=== PATIENT | female | born 1945 | race Caucasian/White ===

== ENCOUNTER 2023-06-16 14:55 | Inpatient (IN) | payer MEDICARE, OTHER ==
[2023-06-16] MEDS ORDERED: Ondansetron 4 MG/2 ML SDV IVPUSH ONE (15:47)
[2023-06-16] MEDS ORDERED: HYDROmorphone 0.5 MG/0.5 ML Syringe IVPUSH ONE (15:47)
[2023-06-16] MEDS ORDERED: Metoclopramide 10 MG/2 ML SDV IVPUSH ONE (16:02)
[2023-06-16] MEDS ORDERED: Propofol 200 MG/20 ML SDV IVPUSH ONE ×2 (16:21→18:16)
[2023-06-16] MEDS: Sodium Chloride 0.9% 1,000 ML IV STA ×2 (16:38→23:07)
[2023-06-16 18:42] LABS: BASOPHILS ABSOLUTE AUTO 0.1 K/mm3 (0.0-0.2); BASOPHILS PERCENT AUTO 0.4 % (0.0-1.0); HEMATOCRIT 24.7 % (37.0-47.0); HEMOGLOBIN 8.2 gm/dl (12.0-16.0); IMMATURE GRAN ABSOLUTE AUTO 0.14 K/mm3 (0.00-0.05); IMMATURE GRAN PERCENT AUTO 1.2 % (0.0-0.4); LYMPHOCYTES ABSOLUTE AUTO 0.7 K/mm3 (1.0-4.8); LYMPHOCYTES PERCENT AUTO 5.7 % (24.0-44.0); MEAN CORPUSCULAR HEMOGLOBIN 29.6 pg (28.0-32.0); MEAN CORPUSCULAR HGB CONC 33.2 g/dl (32.0-36.0); MEAN CORPUSCULAR VOLUME 89.2 fl (83.0-99.0); MEAN PLATELET VOLUME 8.3 fl (9.4-12.3); MONOCYTES ABSOLUTE AUTO 0.5 K/mm3 (0.0-0.8); MONOCYTES PERCENT AUTO 4.4 % (0.0-8.0); NEUTROPHILS ABSOLUTE AUTO 10.1 K/mm3 (1.8-7.7); NEUTROPHILS PERCENT AUTO 88.3 % (41.0-71.0); PLATELET COUNT,PLT 640 K/mm3 (150-400); RED BLOOD CELL COUNT 2.77 M/mm3 (4.10-5.30); WHITE BLOOD CELL COUNT,WBC 11.48 K/mm3 (3.9-11.3)
[2023-06-16] MEDS ORDERED: Docusate Sodium 100 MG Cap PO PRN (18:52)
[2023-06-16 19:10] LABS: A/G RATIO 0.5 (1-2); ANION GAP 12.2 (5-15); BILIRUBIN TOTAL 0.4 mg/dL (0.2-1.0); EST CRCL DRUG DOSING (CG) 32.23 mL/min; POTASSIUM,K 4.2 mEq/L (3.5-5.1); PROTEIN TOTAL,TP 6.4 g/dl (6.4-8.2)
[2023-06-16] MEDS: HYDROmorphone 0.5 MG/0.5 ML Syringe IVPUSH PRN ×2 (20:47→23:06)
[2023-06-16] MEDS ORDERED: Sodium Chloride 0.9% 1,000 ML ONE (23:03)
[2023-06-17] MEDS: Heparin Sodium 5,000 Units/ML Vial SUBCUT SCH ×3 (00:15→19:09)
[2023-06-17] MEDS: Ketorolac 30 MG/ML SDV IVPUSH PRN ×2 (00:59→08:30)
[2023-06-17] MEDS: HYDROmorphone 0.5 MG/0.5 ML Syringe IVPUSH PRN ×8 (00:59→21:23)
[2023-06-17] MEDS: traMADol 50 MG Tab PO PRN ×3 (04:43→17:10)
[2023-06-17 06:20] LABS: HEMATOCRIT 25.1 % (37.0-47.0); HEMOGLOBIN 8.4 gm/dl (12.0-16.0); MEAN CORPUSCULAR HEMOGLOBIN 30.8 pg (28.0-32.0); MEAN CORPUSCULAR HGB CONC 33.5 g/dl (32.0-36.0); MEAN CORPUSCULAR VOLUME 91.9 fl (83.0-99.0); MEAN PLATELET VOLUME 8.2 fl (9.4-12.3); PLATELET COUNT,PLT 657 K/mm3 (150-400); RED BLOOD CELL COUNT 2.73 M/mm3 (4.10-5.30); WHITE BLOOD CELL COUNT,WBC 11.51 K/mm3 (3.9-11.3)
[2023-06-17 06:42] LABS: ANION GAP 10.8 (5-15); BUN/CREATININE RATIO 26.7 (14-18); CREATININE 0.6 mg/dL (0.55-1.02); EST CRCL DRUG DOSING (CG) 53.71 mL/min; MAGNESIUM 1.6 mg/dL (1.8-2.4); PHOSPHORUS 2.8 mg/dL (2.6-4.7); POTASSIUM,K 3.8 mEq/L (3.5-5.1)
[2023-06-17] MEDS: Hydroxychloroquine 200 MG Tab PO SCH (08:34)
[2023-06-17] MEDS: DULoxetine 30 MG Cap PO SCH (08:34)
[2023-06-17] MEDS: Hydrochlorothiazide 25 MG Tab PO SCH (08:35)
[2023-06-17] MEDS: Losartan 100 MG Tab PO SCH (08:35)
[2023-06-17] MEDS: Folic Acid 1 MG Tab PO SCH (08:35)
[2023-06-17] MEDS: Metoprolol Succinate 25 MG Tab.ER PO SCH (08:35)
[2023-06-17] MEDS ORDERED: Non-Formulary Medication 1 Each (Prednisone [Prednisone] 2.5 MG Tablet) PO SCH (09:00)
[2023-06-17] MEDS ORDERED: Non-Formulary Medication 1 Each (Valsartan/Hydrochlorothiazide [Diovan Hct 160-25 Mg Table PO SCH (09:00)
[2023-06-17] MEDS: predniSONE 5 MG Tab PO SCH (09:07)
[2023-06-17] MEDS ORDERED: Memantine 10 MG Tab PO SCH (09:30)
[2023-06-17] MEDS ORDERED: Citalopram 20 MG Tab PO SCH (09:45)
[2023-06-17] MEDS: Multivitamins with Minerals/Folic Acid/Lutein/Zeaxanth Tab PO SCH (12:52)
[2023-06-17] MEDS: Calcium Carbonate/Vitamin D3 600 MG-200 Units Tab PO SCH (12:52)
[2023-06-17] MEDS: Ondansetron 4 MG Tab.DIS PO PRN (14:43)
[2023-06-17] MEDS: Ketorolac 15 MG/ML SDV IVPUSH PRN (17:57)
[2023-06-17] MEDS ORDERED: Melatonin 3 MG Tab PO SCH (21:00)
[2023-06-17] MEDS: Acetaminophen 325 MG Tab PO PRN (21:23)
[2023-06-18] MEDS: Ketorolac 15 MG/ML SDV IVPUSH PRN ×2 (00:32→08:38)
[2023-06-18 02:09] LABS: APPEARANCE,URINE CLEAR (Clear); BILIRUBIN,URINE NEGATIVE (Negative); COLOR,URINE YELLOW (Yellow); GLUCOSE,URINE NEGATIVE (Negative); KETONES,URINE TRACE (Negative); LEUKOCYTE ESTERASE,URINE NEGATIVE (Negative); NITRITE,URINE NEGATIVE (Negative); OCCULT BLOOD,URINE 2+ (Negative); PROTEIN,URINE TRACE (Negative); UROBILINOGEN,URINE 0.2 (0.2-1.0)
[2023-06-18 02:20] LABS: BACTERIA,URINE MODERATE /hpf (FEW); RBC,URINE 20-30 /hpf (0-5)
[2023-06-18 02:21] LABS: MUCUS,URINE NOT SEEN /hpf (FEW)
[2023-06-18 05:01] LABS: HEMATOCRIT 22.1 % (37.0-47.0); MEAN CORPUSCULAR HEMOGLOBIN 30.7 pg (28.0-32.0); MEAN CORPUSCULAR HGB CONC 33.5 g/dl (32.0-36.0); MEAN CORPUSCULAR VOLUME 91.7 fl (83.0-99.0); MEAN PLATELET VOLUME 8.4 fl (9.4-12.3); PLATELET COUNT,PLT 587 K/mm3 (150-400); RED BLOOD CELL COUNT 2.41 M/mm3 (4.10-5.30); WHITE BLOOD CELL COUNT,WBC 17.49 K/mm3 (3.9-11.3)
[2023-06-18 05:34] LABS: ANION GAP 8.7 (5-15); CALCIUM 8.5 mg/dL (8.5-10.1); CREATININE 0.7 mg/dL (0.55-1.02); EST CRCL DRUG DOSING (CG) 46.04 mL/min; HEMOGLOBIN 7.4 gm/dl (12.0-16.0); POTASSIUM,K 3.7 mEq/L (3.5-5.1)
[2023-06-18] MEDS: traMADol 50 MG Tab PO PRN ×3 (06:03→18:33)
[2023-06-18] MEDS: Heparin Sodium 5,000 Units/ML Vial SUBCUT SCH ×2 (06:04→18:34)
[2023-06-18] MEDS: Hydroxychloroquine 200 MG Tab PO SCH (08:40)
[2023-06-18] MEDS: DULoxetine 30 MG Cap PO SCH (08:42)
[2023-06-18] MEDS: predniSONE 5 MG Tab PO SCH (08:42)
[2023-06-18] MEDS: Multivitamins with Minerals/Folic Acid/Lutein/Zeaxanth Tab PO SCH (08:43)
[2023-06-18] MEDS: Calcium Carbonate/Vitamin D3 600 MG-200 Units Tab PO SCH (08:43)
[2023-06-18] MEDS: Folic Acid 1 MG Tab PO SCH (08:43)
[2023-06-18] MEDS: Losartan 100 MG Tab PO SCH (09:36)
[2023-06-18] MEDS: Metoprolol Succinate 25 MG Tab.ER PO SCH (09:36)
[2023-06-18] MEDS: Hydrochlorothiazide 25 MG Tab PO SCH (09:36)
[2023-06-18] MEDS: HYDROmorphone 0.5 MG/0.5 ML Syringe IVPUSH PRN ×4 (10:23→22:44)
[2023-06-18] MEDS: Famotidine 20 MG Tab PO SCH (20:10)
[2023-06-18] MEDS: Acetaminophen 325 MG Tab PO PRN (20:10)
[2023-06-19] MEDS: Heparin Sodium 5,000 Units/ML Vial SUBCUT SCH ×2 (06:20→18:46)
[2023-06-19] MEDS: HYDROmorphone 0.5 MG/0.5 ML Syringe IVPUSH PRN ×4 (06:22→22:14)
[2023-06-19] MEDS: Acetaminophen 325 MG Tab PO PRN ×3 (08:00→19:58)
[2023-06-19] MEDS: Leflunomide 20 MG Tablet **PTOM PO SCH (08:02)
[2023-06-19] MEDS: Hydroxychloroquine 200 MG Tab PO SCH (08:11)
[2023-06-19] MEDS: Metoprolol Succinate 25 MG Tab.ER PO SCH (08:12)
[2023-06-19] MEDS: DULoxetine 30 MG Cap PO SCH (08:12)
[2023-06-19] MEDS: Multivitamins with Minerals/Folic Acid/Lutein/Zeaxanth Tab PO SCH (08:12)
[2023-06-19] MEDS: predniSONE 5 MG Tab PO SCH (08:12)
[2023-06-19] MEDS: Calcium Carbonate/Vitamin D3 600 MG-200 Units Tab PO SCH (08:12)
[2023-06-19] MEDS: Folic Acid 1 MG Tab PO SCH (08:12)
[2023-06-19] MEDS ORDERED: Non-Formulary Medication 1 Each (Vit A/Vit C/Vit E/Zinc/Copper [Preservision] 1 EACH Table PO SCH (09:00)
[2023-06-19 09:37] LABS: HEMATOCRIT 21.8 % (37.0-47.0); MEAN CORPUSCULAR HEMOGLOBIN 29.5 pg (28.0-32.0); MEAN CORPUSCULAR HGB CONC 32.1 g/dl (32.0-36.0); MEAN PLATELET VOLUME 8.4 fl (9.4-12.3); PLATELET COUNT,PLT 646 K/mm3 (150-400); RED BLOOD CELL COUNT 2.37 M/mm3 (4.10-5.30); WHITE BLOOD CELL COUNT,WBC 14.57 K/mm3 (3.9-11.3)
[2023-06-19 09:59] LABS: ANION GAP 9.1 (5-15); BUN/CREATININE RATIO 21.7 (14-18); CALCIUM 8.9 mg/dL (8.5-10.1); CREATININE 0.6 mg/dL (0.55-1.02); EST CRCL DRUG DOSING (CG) 53.71 mL/min; POTASSIUM,K 4.1 mEq/L (3.5-5.1)
[2023-06-19] MEDS: traMADol 50 MG Tab PO PRN ×2 (11:09→18:46)
[2023-06-19] MEDS: Losartan 100 MG Tab PO SCH (11:21)
[2023-06-19] MEDS: Hydrochlorothiazide 25 MG Tab PO SCH (11:21)
[2023-06-19] MEDS: Docusate Sodium 100 MG Cap PO SCH (11:21)
[2023-06-19] MEDS ORDERED: Sodium Chloride 0.9% 250 ML IV SCH (16:30)
[2023-06-19] MEDS: Famotidine 20 MG Tab PO SCH (22:14)
[2023-06-20] MEDS: Acetaminophen 325 MG Tab PO PRN ×5 (03:40→23:13)
[2023-06-20] MEDS: Heparin Sodium 5,000 Units/ML Vial SUBCUT SCH ×2 (06:51→18:13)
[2023-06-20] MEDS: Ferrous Sulfate 324 MG Tab.EC PO SCH (06:51)
[2023-06-20] MEDS: Hydroxychloroquine 200 MG Tab PO SCH (08:20)
[2023-06-20] MEDS: Calcium Carbonate/Vitamin D3 600 MG-200 Units Tab PO SCH (08:20)
[2023-06-20] MEDS: DULoxetine 30 MG Cap PO SCH (08:20)
[2023-06-20] MEDS: Multivitamins with Minerals/Folic Acid/Lutein/Zeaxanth Tab PO SCH (08:20)
[2023-06-20] MEDS: Docusate Sodium 100 MG Cap PO SCH (08:20)
[2023-06-20] MEDS: Folic Acid 1 MG Tab PO SCH ×2 (08:20→08:24)
[2023-06-20] MEDS: Leflunomide 20 MG Tablet **PTOM PO SCH (08:21)
[2023-06-20] MEDS: predniSONE 5 MG Tab PO SCH (08:21)
[2023-06-20] MEDS: Hydrochlorothiazide 25 MG Tab PO SCH (12:37)
[2023-06-20] MEDS: Metoprolol Succinate 25 MG Tab.ER PO SCH (12:37)
[2023-06-20] MEDS: Losartan 100 MG Tab PO SCH (12:37)
[2023-06-20] MEDS: Famotidine 20 MG Tab PO SCH (20:20)
[2023-06-21] MEDS: traMADol 50 MG Tab PO PRN ×2 (01:41→20:54)
[2023-06-21] MEDS: Acetaminophen 325 MG Tab PO PRN ×5 (04:32→22:57)
[2023-06-21 05:47] LABS: HEMATOCRIT 24.5 % (37.0-47.0); HEMOGLOBIN 8.2 gm/dl (12.0-16.0); MEAN CORPUSCULAR HEMOGLOBIN 30.1 pg (28.0-32.0); MEAN CORPUSCULAR HGB CONC 33.5 g/dl (32.0-36.0); MEAN CORPUSCULAR VOLUME 90.1 fl (83.0-99.0); MEAN PLATELET VOLUME 8.2 fl (9.4-12.3); PLATELET COUNT,PLT 640 K/mm3 (150-400); RED BLOOD CELL COUNT 2.72 M/mm3 (4.10-5.30); WHITE BLOOD CELL COUNT,WBC 10.97 K/mm3 (3.9-11.3)
[2023-06-21 06:01] LABS: ANION GAP 10.5 (5-15); CALCIUM 8.8 mg/dL (8.5-10.1); CREATININE 0.6 mg/dL (0.55-1.02); EST CRCL DRUG DOSING (CG) 53.71 mL/min; POTASSIUM,K 4.5 mEq/L (3.5-5.1)
[2023-06-21] MEDS: Heparin Sodium 5,000 Units/ML Vial SUBCUT SCH ×2 (06:49→18:36)
[2023-06-21] MEDS: Ferrous Sulfate 324 MG Tab.EC PO SCH (06:49)
[2023-06-21] MEDS: predniSONE 5 MG Tab PO SCH (09:11)
[2023-06-21] MEDS: Multivitamins with Minerals/Folic Acid/Lutein/Zeaxanth Tab PO SCH (09:11)
[2023-06-21] MEDS: DULoxetine 30 MG Cap PO SCH (09:11)
[2023-06-21] MEDS: Calcium Carbonate/Vitamin D3 600 MG-200 Units Tab PO SCH (09:12)
[2023-06-21] MEDS: Folic Acid 1 MG Tab PO SCH ×2 (09:12→09:20)
[2023-06-21] MEDS: Docusate Sodium 100 MG Cap PO SCH (09:12)
[2023-06-21] MEDS: Leflunomide 20 MG Tablet **PTOM PO SCH (09:12)
[2023-06-21] MEDS: Losartan 100 MG Tab PO SCH (09:15)
[2023-06-21] MEDS: Metoprolol Succinate 25 MG Tab.ER PO SCH (09:15)
[2023-06-21] MEDS: Hydrochlorothiazide 25 MG Tab PO SCH (09:15)
[2023-06-21] MEDS: Hydroxychloroquine 200 MG Tab PO SCH (09:17)
[2023-06-21] MEDS: Famotidine 20 MG Tab PO SCH (20:55)
[2023-06-22] MEDS: Acetaminophen 325 MG Tab PO PRN ×3 (07:22→19:43)
[2023-06-22] MEDS: Heparin Sodium 5,000 Units/ML Vial SUBCUT SCH ×2 (07:23→19:25)
[2023-06-22] MEDS: Ferrous Sulfate 324 MG Tab.EC PO SCH (07:23)
[2023-06-22] MEDS: Losartan 100 MG Tab PO SCH (08:22)
[2023-06-22] MEDS: Hydroxychloroquine 200 MG Tab PO SCH (08:22)
[2023-06-22] MEDS: Multivitamins with Minerals/Folic Acid/Lutein/Zeaxanth Tab PO SCH (08:23)
[2023-06-22] MEDS: Metoprolol Succinate 25 MG Tab.ER PO SCH (08:23)
[2023-06-22] MEDS: Hydrochlorothiazide 25 MG Tab PO SCH (08:23)
[2023-06-22] MEDS: predniSONE 5 MG Tab PO SCH (08:23)
[2023-06-22] MEDS: Folic Acid 1 MG Tab PO SCH (08:23)
[2023-06-22] MEDS: Docusate Sodium 100 MG Cap PO SCH (08:23)
[2023-06-22] MEDS: Leflunomide 20 MG Tablet **PTOM PO SCH (08:24)
[2023-06-22] MEDS: Calcium Carbonate/Vitamin D3 600 MG-200 Units Tab PO SCH (08:24)
[2023-06-22] MEDS: DULoxetine 30 MG Cap PO SCH (08:24)
[2023-06-22 08:38] LABS: BASOPHILS ABSOLUTE AUTO 0.1 K/mm3 (0.0-0.2); EOSINOPHILS ABSOLUTE AUTO 0.3 K/mm3 (0.0-0.4); EOSINOPHILS PERCENT AUTO 3.1 % (0.0-6.0); HEMOGLOBIN 9.6 gm/dl (12.0-16.0); IMMATURE GRAN ABSOLUTE AUTO 0.22 K/mm3 (0.00-0.05); IMMATURE GRAN PERCENT AUTO 2.1 % (0.0-0.4); LYMPHOCYTES ABSOLUTE AUTO 1.6 K/mm3 (1.0-4.8); MEAN CORPUSCULAR HEMOGLOBIN 30.4 pg (28.0-32.0); MEAN CORPUSCULAR HGB CONC 33.1 g/dl (32.0-36.0); MEAN CORPUSCULAR VOLUME 91.8 fl (83.0-99.0); MONOCYTES ABSOLUTE AUTO 1.2 K/mm3 (0.0-0.8); MONOCYTES PERCENT AUTO 11.6 % (0.0-8.0); NEUTROPHILS ABSOLUTE AUTO 6.9 K/mm3 (1.8-7.7); NEUTROPHILS PERCENT AUTO 67.2 % (41.0-71.0); RED BLOOD CELL COUNT 3.16 M/mm3 (4.10-5.30); WHITE BLOOD CELL COUNT,WBC 10.32 K/mm3 (3.9-11.3)
[2023-06-22 08:39] LABS: PLATELET COUNT,PLT 754 K/mm3 (150-400)
[2023-06-22 08:52] LABS: ANION GAP 15.5 (5-15); CREATININE 0.7 mg/dL (0.55-1.02); EST CRCL DRUG DOSING (CG) 46.04 mL/min; POTASSIUM,K 4.5 mEq/L (3.5-5.1)
[2023-06-22] MEDS: traMADol 50 MG Tab PO PRN (10:54)
[2023-06-22] MEDS ORDERED: HYDROmorphone 2 MG Tab PO PRN (11:42)
[2023-06-22] MEDS ORDERED: Naloxone 0.4 MG/ML SDV IVPUSH PRN (14:21)
[2023-06-22 15:14] LABS: BASOPHILS ABSOLUTE AUTO 0.1 K/mm3 (0.0-0.2); BASOPHILS PERCENT AUTO 0.8 % (0.0-1.0); EOSINOPHILS PERCENT AUTO 0.4 % (0.0-6.0); HEMATOCRIT 28.6 % (37.0-47.0); HEMOGLOBIN 9.4 gm/dl (12.0-16.0); IMMATURE GRAN ABSOLUTE AUTO 0.19 K/mm3 (0.00-0.05); IMMATURE GRAN PERCENT AUTO 1.8 % (0.0-0.4); LYMPHOCYTES ABSOLUTE AUTO 0.9 K/mm3 (1.0-4.8); LYMPHOCYTES PERCENT AUTO 8.5 % (24.0-44.0); MEAN CORPUSCULAR HEMOGLOBIN 30.4 pg (28.0-32.0); MEAN CORPUSCULAR HGB CONC 32.9 g/dl (32.0-36.0); MEAN CORPUSCULAR VOLUME 92.6 fl (83.0-99.0); MEAN PLATELET VOLUME 8.1 fl (9.4-12.3); MONOCYTES PERCENT AUTO 9.7 % (0.0-8.0); NEUTROPHILS ABSOLUTE AUTO 8.5 K/mm3 (1.8-7.7); NEUTROPHILS PERCENT AUTO 78.8 % (41.0-71.0); PLATELET COUNT,PLT 721 K/mm3 (150-400); RED BLOOD CELL COUNT 3.09 M/mm3 (4.10-5.30); WHITE BLOOD CELL COUNT,WBC 10.73 K/mm3 (3.9-11.3)
[2023-06-22 15:33] LABS: A/G RATIO 0.4 (1-2); ALBUMIN 1.9 g/dl (3.4-5.0); ANION GAP 13.2 (5-15); BILIRUBIN TOTAL 0.4 mg/dL (0.2-1.0); BUN/CREATININE RATIO 22.5 (14-18); CREATININE 0.8 mg/dL (0.55-1.02); EST CRCL DRUG DOSING (CG) 40.29 mL/min; POTASSIUM,K 5.2 mEq/L (3.5-5.1); PROTEIN TOTAL,TP 6.9 g/dl (6.4-8.2)
[2023-06-22] MEDS: HYDROmorphone 0.5 MG/0.5 ML Syringe IVPUSH PRN ×2 (16:58→21:41)
[2023-06-22] MEDS: Famotidine 20 MG Tab PO SCH ×2 (19:44→21:46)
[2023-06-23] MEDS: HYDROmorphone 0.5 MG/0.5 ML Syringe IVPUSH PRN ×4 (02:22→14:57)
[2023-06-23] MEDS: Ferrous Sulfate 324 MG Tab.EC PO SCH (07:20)
[2023-06-23 08:09] LABS: BASOPHILS ABSOLUTE AUTO 0.1 K/mm3 (0.0-0.2); EOSINOPHILS ABSOLUTE AUTO 0.2 K/mm3 (0.0-0.4); EOSINOPHILS PERCENT AUTO 2.2 % (0.0-6.0); HEMATOCRIT 31.8 % (37.0-47.0); HEMOGLOBIN 10.3 gm/dl (12.0-16.0); IMMATURE GRAN ABSOLUTE AUTO 0.23 K/mm3 (0.00-0.05); IMMATURE GRAN PERCENT AUTO 2.2 % (0.0-0.4); LYMPHOCYTES ABSOLUTE AUTO 1.4 K/mm3 (1.0-4.8); LYMPHOCYTES PERCENT AUTO 13.9 % (24.0-44.0); MEAN CORPUSCULAR HEMOGLOBIN 30.3 pg (28.0-32.0); MEAN CORPUSCULAR HGB CONC 32.4 g/dl (32.0-36.0); MEAN CORPUSCULAR VOLUME 93.5 fl (83.0-99.0); MONOCYTES ABSOLUTE AUTO 1.2 K/mm3 (0.0-0.8); MONOCYTES PERCENT AUTO 11.9 % (0.0-8.0); NEUTROPHILS ABSOLUTE AUTO 7.1 K/mm3 (1.8-7.7); NEUTROPHILS PERCENT AUTO 68.8 % (41.0-71.0); PLATELET COUNT,PLT 766 K/mm3 (150-400); WHITE BLOOD CELL COUNT,WBC 10.34 K/mm3 (3.9-11.3)
[2023-06-23] MEDS: Hydroxychloroquine 200 MG Tab PO SCH (08:13)
[2023-06-23] MEDS: DULoxetine 30 MG Cap PO SCH (08:13)
[2023-06-23] MEDS: Calcium Carbonate/Vitamin D3 600 MG-200 Units Tab PO SCH (08:13)
[2023-06-23] MEDS: predniSONE 5 MG Tab PO SCH (08:13)
[2023-06-23] MEDS: Hydrochlorothiazide 25 MG Tab PO SCH (08:14)
[2023-06-23] MEDS: Docusate Sodium 100 MG Cap PO SCH (08:15)
[2023-06-23] MEDS: Acetaminophen 325 MG Tab PO PRN ×2 (08:15→14:31)
[2023-06-23] MEDS: Folic Acid 1 MG Tab PO SCH (08:15)
[2023-06-23] MEDS: Multivitamins with Minerals/Folic Acid/Lutein/Zeaxanth Tab PO SCH (08:15)
[2023-06-23] MEDS: Losartan 100 MG Tab PO SCH (08:15)
[2023-06-23] MEDS: Metoprolol Succinate 25 MG Tab.ER PO SCH (08:16)
[2023-06-23 08:58] LABS: A/G RATIO 0.4 (1-2); ALBUMIN 2.1 g/dl (3.4-5.0); ANION GAP 11.6 (5-15); BILIRUBIN TOTAL 0.4 mg/dL (0.2-1.0); CALCIUM 9.2 mg/dL (8.5-10.1); CREATININE 0.7 mg/dL (0.55-1.02); EST CRCL DRUG DOSING (CG) 46.04 mL/min; MAGNESIUM 1.9 mg/dL (1.8-2.4); POTASSIUM,K 4.6 mEq/L (3.5-5.1); PROTEIN TOTAL,TP 7.3 g/dl (6.4-8.2)
[2023-06-23] MEDS: Leflunomide 20 MG Tablet **PTOM PO SCH (09:17)
[2023-06-23] MEDS ORDERED: Propofol 200 MG/20 ML SDV ONE (11:26)
[2023-06-23] MEDS ORDERED: Midazolam 1 MG/ML 2 ML SDV ONE (11:26)
[2023-06-23] MEDS ORDERED: fentaNYL 100 MCG/2 ML SDV ONE (11:26)
[2023-06-23] MEDS ORDERED: Ketamine 200 MG/20 ML MDV ONE (11:28)
[2023-06-23] MEDS ORDERED: Lidocaine 1% 4 ML ONE (11:28)
[2023-06-23] MEDS ORDERED: Lactated Ringers 1,000 ML IV ONE (11:30)
[2023-06-23] MEDS ORDERED: Rocuronium 50 MG/5 ML Vial ONE (11:44)
[2023-06-23] MEDS ORDERED: Sodium Chloride 0.9% 1,000 ML IV SCH (11:45)
[2023-06-23] MEDS ORDERED: Phenylephrine 1% 10 MG/ML SDV ONE ×2 (11:50→12:52)
[2023-06-23] MEDS ORDERED: ePHEDrine 50 MG/ML SDV ONE (12:15)
[2023-06-23] MEDS ORDERED: Sugammadex Sodium 200 MG/2 ML VIAL ONE (12:18)
[2023-06-23] MEDS ORDERED: fentaNYL 100 MCG/2 ML SDV IVPUSH PRN (13:00)
[2023-06-23] MEDS ORDERED: Ondansetron 4 MG/2 ML SDV IVPUSH PRN (13:00)
[2023-06-23] MEDS ORDERED: HYDROmorphone 0.5 MG/0.5 ML Syringe IVPUSH PRN (13:00)
[2023-06-23] MEDS: Ondansetron 4 MG Tab.DIS PO PRN (14:56)
== END 2023-06-23 15:21 | DRG 559 ==
LOC: JD.ED 14:55 → JD.OB 18:52 → JD.ICU 06-17 00:21 → JD.MS 06-17 18:42
PROVIDERS: ADMIT Internal Medicine; ATTEND Internal Medicine
PROC: 0QS4XZZ Reposition Right Acetabulum, External Approach (ICD-10-PCS; principal; 2023-06-16)
DX: T84.020A Dislocation of internal right hip prosthesis, initial encounter (principal); S32.491A Other specified fracture of right acetabulum, initial encounter for closed fracture; S32.10XA Unspecified fracture of sacrum, initial encounter for closed fracture; S32.591A Other specified fracture of right pubis, initial encounter for closed fracture; D62 Acute posthemorrhagic anemia; M48.56XA Collapsed vertebra, not elsewhere classified, lumbar region, initial encounter for fracture; E87.1 Hypo-osmolality and hyponatremia; M97.01XA Periprosthetic fracture around internal prosthetic right hip joint, initial encounter; M06.9 Rheumatoid arthritis, unspecified; M81.0 Age-related osteoporosis without current pathological fracture; E83.42 Hypomagnesemia; S32.401A Unspecified fracture of right acetabulum, initial encounter for closed fracture; M19.90 Unspecified osteoarthritis, unspecified site; D72.829 Elevated white blood cell count, unspecified; I10 Essential (primary) hypertension; Z88.8 Allergy status to other drugs, medicaments and biological substances; Z96.641 Presence of right artificial hip joint; X58.XXXA Exposure to other specified factors, initial encounter; Z79.899 Other long term (current) drug therapy
CPT/HCPCS: 27266; 36415; 72192; 73501 ×2; 80053; 85025; 96374; 96375; 99152; 99153; 99285; J1170; J2704 ×2; J2765; J7030; 01200; 27265; 36430; 76000; 76000-26; 80048; 81001; 83735; 84100; 85018; 85027; 86850; 86900; 86901; 86922; 87641; 97110-GP; 97116-GP; 97162-GP; 97530-GP; 99100; A9270-GY; J1644; J1885; J2250; J2371; J3010; J3475; J3490; J7120; J7512; P9016

== ENCOUNTER 2023-06-27 23:37 | Emergency (ER) | payer MEDICARE, OTHER ==
[2023-06-27] MEDS ORDERED: Sodium Chloride 0.9% 10 ML Syringe FLUSH PRN (23:43)
[2023-06-28] MEDS ORDERED: Propofol 200 MG/20 ML SDV IVPUSH ONE ×3 (00:41→02:17)
== END 2023-06-28 02:32 ==
LOC: JD.ED 23:37
DX: M24.451 Recurrent dislocation, right hip (principal); I10 Essential (primary) hypertension; Z88.8 Allergy status to other drugs, medicaments and biological substances; Z88.1 Allergy status to other antibiotic agents; Z79.899 Other long term (current) drug therapy
CPT/HCPCS: 27265; 73502; 99284; J2704; J3490